=== PATIENT | male | born 1945 | race Caucasian/White ===

== ENCOUNTER 2017-01-23 08:30 | Inpatient (IN) | payer OTHER ==
[2017-01-23] VITALS (15 sets, daily range): BP systolic 93–135
[~2017-01-23] VITALS: Ht 172.7 cm; Wt 126.6 kg
[2017-01-23 09:08] LABS: BILIRUBIN,URINE NEGATIVE (NEGATIVE); BLOOD, URINE NEGATIVE (NEGATIVE); CLARITY/URINE CLEAR (CLEAR); COLOR,URINE YELLOW (YELLOW); GLUCOSE,URINE NEGATIVE (NEGATIVE); KETONES,URINE NEGATIVE (NEGATIVE); LEUKOCYTE ESTERASE ,URINE 1+ (NEGATIVE); NITRITE, URINE NEGATIVE (NEGATIVE); PH,URINE 5.5 (5.0-8.0); PROTEIN URINE TRACE (NEGATIVE)
[2017-01-23 09:16] LABS: BASOPHILS # (AUTO) 0.5 K/uL (0.0-0.2); EOSINOPHILS # (AUTO) 0.2 K/uL (0.0-0.4); EOSINOPHILS % (AUTO) 1.5 % (0.0-4.0); HEMATOCRIT 26.3 % (36-54); HEMOGLOBIN 8.1 g/dL (14.0-18.0); LYMPHOCYTES % (AUTO) 6.3 % (20.5-51.5); MEAN CORPUSCULAR HEMOGLOBIN 28 pg (27-31); MEAN CORPUSCULAR HGB CONC 31 % (32-36); MEAN CORPUSCULAR VOLUME 91 fL (79.0-98.0); MONOCYTES # (AUTO) 0.4 K/uL (0.0-1.0); MONOCYTES % (AUTO) 2.9 % (1.7-9.3); NEUTROPHILS # (AUTO) 13.1 K/uL (1.8-7.7); NEUTROPHILS % (AUTO) 86.3 % (40.0-70.0); PLATELET COUNT (AUTO) 323 K/uL (130-430); RED BLOOD CELL COUNT(AUTO) 2.89 MIL/uL (4.2-6.2); RED CELL DISTRIBUTION WIDTH 24.8 % (9.0-15.0); WHITE BLOOD COUNT (AUTO) 15.2 K/uL (4.8-10.8)
[2017-01-23 09:17] LABS: BACTERIA,URINE FEW /HPF (None Seen); RBC,URINE 0-3 /HPF (0-3)
[2017-01-23 09:18] LABS: FINE GRANULAR CASTS,URINE 0-10 /LPF (None Seen); MUCUS,URINE 1+ /LPF (None Seen); YEAST,URINE Moderate /HPF (None Seen)
[2017-01-23 09:19] LABS: ANION GAP 7 (5-15); CALCIUM 8.8 mg/dL (8.4-11.0); CHLORIDE 97 mmol/L (98-107); CREATININE 1.45 mg/dL (0.55-1.30); GLUCOSE 137 mg/dL (70-99); POTASSIUM 4.2 mmol/L (3.5-5.1); SODIUM SERUM 134 mmol/L (136-145); UREA NITROGEN, BLOOD 37 mg/dL (8-21)
[2017-01-23 09:22] LABS: INR 1.2 (0.80-1.20); PROTHROMBIN TIME 13.3 SECS (9.5-12.5)
[2017-01-23 09:24] LABS: ALANINE AMINOTRANSFERASE 101 U/L (12-78); ALBUMIN 3.8 g/dL (3.4-4.8); ASPARTATE AMINOTRANSFERASE 31 U/L (10-37); LIPASE 305 U/L (73-393); TOTAL BILIRUBIN 1.7 mg/dL (0.0-1.0); TOTAL PROTEIN, SERUM 7.6 g/dL (6.4-8.3)
[2017-01-23] MEDS: NACL 0.9% 1,000 ML IV ONE ×2 (09:25→09:57)
[2017-01-23 09:40] LABS: BLOOD GAS PH 7.293 (7.350-7.450)
[2017-01-23 09:41] LABS: ABG TOTAL HEMOGLOBIN 8.5 G/dL (12.0-18.0); BLOOD GAS BASE EXCESS 3.4 mmol/L (-3.0-3.0); BLOOD GAS HHB 9.7 % (0.0-6.0); BLOOD O2Hb% 86.4 % (94.0-97.0)
[2017-01-23] MEDS ORDERED: DOCU-144 PO (09:45)
[2017-01-23] MEDS ORDERED: MAGN400O4 PO (09:45)
[2017-01-23] MEDS ORDERED: SORBITOL MC (09:45)
[2017-01-23] MEDS ORDERED: ONDA4TAB5 PO (09:45)
[2017-01-23] MEDS ORDERED: TAMS-11 PO (09:45)
[2017-01-23] MEDS ORDERED: CITA20TA11 PO (09:45)
[2017-01-23] MEDS ORDERED: APIX5TAB PO (09:45)
[2017-01-23] MEDS ORDERED: OXYC5TAB84 PO (09:45)
[2017-01-23] MEDS ORDERED: TUBE1VIA ID (09:45)
[2017-01-23] MEDS ORDERED: SPIR25TA4 PO (09:45)
[2017-01-23] MEDS ORDERED: ATOR20TA64 PO (09:45)
[2017-01-23] MEDS ORDERED: FURO-149 PO (09:45)
[2017-01-23] MEDS ORDERED: ALBU2.5V7 INH (09:45)
[2017-01-23] MEDS ORDERED: FINA5TAB11 PO (09:45)
[2017-01-23] MEDS ORDERED: ASA81 PO (09:45)
[2017-01-23] MEDS ORDERED: ACET325T53 PO (09:45)
[2017-01-23] MEDS ORDERED: BISA5TAB10 PO (09:45)
[2017-01-23] MEDS ORDERED: POTA-118 PO (09:45)
[2017-01-23] MEDS ORDERED: cefTRIAXone 1 GM IVPB PREMIX 50 ML IV ONE (10:00)
[2017-01-23] MEDS ORDERED: ALBUTEROL SULFATE 0.083% 2.5 MG/3 ML VIAL.NEB INH PRN (11:45)
[2017-01-23] MEDS ORDERED: IPRATROPIUM BROM 0.5 MG/2.5 ML VIAL.NEB (ATROVENT) INH PRN (11:45)
[2017-01-23] MEDS ORDERED: IPRATROPIUM BROM 0.5 MG/2.5 ML VIAL.NEB (ATROVENT) INH ONE (12:00)
[2017-01-23] MEDS ORDERED: FUROSEMIDE 40 MG/4 ML VIAL IVP ONE (12:00)
[2017-01-23] MEDS ORDERED: ALBUTEROL SULFATE 0.083% 2.5 MG/3 ML VIAL.NEB INH ONE (12:00)
[2017-01-23 12:27] LABS: IRON (SERUM) 74 mcg/dL (59-158)
[2017-01-23 12:28] LABS: TOTAL IRON BIND. CAPACITY 282 ug/dL (250-450)
[2017-01-23] MEDS: PIPERACILLIN/TAZO 3.375/DEX-IS 50 ML IV SCH ×3 (12:30→23:53)
[2017-01-23 14:14] LABS: ABG TOTAL HEMOGLOBIN 8.1 G/dL (12.0-18.0); BLOOD GAS BASE EXCESS 4.2 mmol/L (-3.0-3.0); BLOOD GAS COHb% 2.6 % (0.5-1.5); BLOOD GAS HHB 9.4 % (0.0-6.0); BLOOD O2Hb% 87.3 % (94.0-97.0)
[2017-01-23] MEDS ORDERED: *HEPARIN PER PHARMACY XX ONE (14:45)
[2017-01-23] MEDS: IPRATROPIUM BROM 0.5 MG/2.5 ML VIAL.NEB (ATROVENT) INH SCH ×3 (15:00→23:56)
[2017-01-23] MEDS ORDERED: methylPREDNISolone SOD SUCC 40 MG/ML VIAL IVP ONE (15:00)
[2017-01-23] MEDS: ALBUTEROL SULFATE 0.083% 2.5 MG/3 ML VIAL.NEB INH SCH ×3 (15:00→23:56)
[2017-01-23] MEDS ORDERED: HEPARIN SODIUM,PORCINE 3000 UNITS/0.6 ML BOLUS IVP PRN (15:15)
[2017-01-23] MEDS ORDERED: HEPARIN SODIUM,PORCINE 5000 UNITS/ML VIAL IV ONE (15:15)
[2017-01-23] MEDS ORDERED: HEPARIN 25,000 UNITS in 250 ML PREMIX IV PRN (15:15)
[2017-01-23] MEDS ORDERED: HEPARIN SODIUM,PORCINE 2000 UNITS/0.4 ML BOLUS IVP PRN (15:15)
[2017-01-23] MEDS ORDERED: ONDANSETRON HCL 4 MG/2 ML VIAL IVP PRN (17:00)
[2017-01-23] MEDS: LACTOBACILLUS RHAMNOSUS GG 1 CAP CAPSULE PO SCH (20:38)
[2017-01-23] MEDS: methylPREDNISolone SOD SUCC 40 MG/ML VIAL IVP SCH (22:08)
[2017-01-24] VITALS (20 sets, daily range): BP systolic 101–159
[2017-01-24] MEDS: PIPERACILLIN/TAZO 3.375/DEX-IS 50 ML IV SCH ×3 (05:56→20:09)
[2017-01-24] MEDS: methylPREDNISolone SOD SUCC 40 MG/ML VIAL IVP SCH ×3 (05:57→22:45)
[2017-01-24 06:26] LABS: BASOPHILS # (AUTO) 0.2 K/uL (0.0-0.2); BASOPHILS % (AUTO) 1.3 % (0.0-2.0); EOSINOPHILS % (AUTO) 0.2 % (0.0-4.0); HEMATOCRIT 22.2 % (36-54); HEMOGLOBIN 7.1 g/dL (14.0-18.0); LYMPHOCYTES # (AUTO) 0.3 K/uL (1.0-5.5); LYMPHOCYTES % (AUTO) 2.2 % (20.5-51.5); MEAN CORPUSCULAR HEMOGLOBIN 30 pg (27-31); MEAN CORPUSCULAR HGB CONC 32 % (32-36); MEAN CORPUSCULAR VOLUME 93 fL (79.0-98.0); MONOCYTES # (AUTO) 0.2 K/uL (0.0-1.0); MONOCYTES % (AUTO) 1.8 % (1.7-9.3); NEUTROPHILS # (AUTO) 12.2 K/uL (1.8-7.7); NEUTROPHILS % (AUTO) 94.5 % (40.0-70.0); PLATELET COUNT (AUTO) 269 K/uL (130-430); RED CELL DISTRIBUTION WIDTH 24.7 % (9.0-15.0); WHITE BLOOD COUNT (AUTO) 12.9 K/uL (4.8-10.8)
[2017-01-24 06:46] LABS: ALANINE AMINOTRANSFERASE 83 U/L (12-78); ANION GAP 3 (5-15); ASPARTATE AMINOTRANSFERASE 28 U/L (10-37); CALCIUM 8.4 mg/dL (8.4-11.0); CHLORIDE 98 mmol/L (98-107); CREATININE 1.52 mg/dL (0.55-1.30); GLUCOSE 125 mg/dL (70-99); SODIUM SERUM 135 mmol/L (136-145); THYROID STIMULATING HORMONE 1.16 uIu/mL (0.34-4.82); TOTAL BILIRUBIN 1.1 mg/dL (0.0-1.0); TOTAL PROTEIN, SERUM 6.4 g/dL (6.4-8.3); UREA NITROGEN, BLOOD 35 mg/dL (8-21)
[2017-01-24 07:32] LABS: ABG TOTAL HEMOGLOBIN 8.4 G/dL (12.0-18.0); BLOOD GAS BASE EXCESS 5.9 mmol/L (-3.0-3.0); BLOOD GAS COHb% 2.1 % (0.5-1.5); BLOOD GAS HHB 12.3 % (0.0-6.0); BLOOD O2Hb% 85.4 % (94.0-97.0)
[2017-01-24] MEDS: IPRATROPIUM BROM 0.5 MG/2.5 ML VIAL.NEB (ATROVENT) INH SCH ×5 (09:14→23:41)
[2017-01-24] MEDS: ALBUTEROL SULFATE 0.083% 2.5 MG/3 ML VIAL.NEB INH SCH ×5 (09:14→23:41)
[2017-01-24] MEDS: LACTOBACILLUS RHAMNOSUS GG 1 CAP CAPSULE PO SCH ×2 (09:26→20:11)
[2017-01-24] MEDS: FUROSEMIDE 40 MG/4 ML VIAL IVP SCH (09:28)
[2017-01-24 16:56] LABS: BF APPEARANCE UNSPUN SLIGHTLY CLOUDY (CLEAR); BODY FLUID COLOR RED (LT YELLOW); BODY FLUID TOTAL VOLUME 800 mL; LYMPHOCYTES, BODY FLUID 15 %; NEUTROPHIL, BODY FLUID 85 %; RBC, BODY FLUID 148750 /uL; SOURCE/TYPE ,BODY FLUID PLEURAL
[2017-01-24] MEDS ORDERED: ACETAMINOPHEN 650 MG/20.3 ML UDC PO PRN (23:30)
[2017-01-25] VITALS (7 sets, daily range): BP systolic 105–120
[2017-01-25 00:05] LABS: BODY FLUID TOTAL PROTEIN 3.3 g/dL
[2017-01-25] MEDS: PIPERACILLIN/TAZO 3.375/DEX-IS 50 ML IV SCH ×5 (00:19→23:10)
[2017-01-25] MEDS: IPRATROPIUM BROM 0.5 MG/2.5 ML VIAL.NEB (ATROVENT) INH SCH ×5 (03:00→18:55)
[2017-01-25] MEDS: ALBUTEROL SULFATE 0.083% 2.5 MG/3 ML VIAL.NEB INH SCH ×5 (03:00→18:56)
[2017-01-25] MEDS: methylPREDNISolone SOD SUCC 40 MG/ML VIAL IVP SCH (06:09)
[2017-01-25] MEDS ORDERED: DIATR MEGLU/DIATRIZ SOD 30 ML SOLUTION PO ONE (08:49)
[2017-01-25 09:55] LABS: RETICULOCYTE COUNT 5.9 % (0.5-1.5)
[2017-01-25] MEDS: FUROSEMIDE 40 MG/4 ML VIAL IVP SCH (10:04)
[2017-01-25] MEDS: LACTOBACILLUS RHAMNOSUS GG 1 CAP CAPSULE PO SCH ×2 (10:05→21:24)
[2017-01-25 10:57] LABS: BASOPHILS # (AUTO) 0.1 K/uL (0.0-0.2); BASOPHILS % (AUTO) 0.6 % (0.0-2.0); EOSINOPHILS % (AUTO) 0.2 % (0.0-4.0); HEMATOCRIT 26.4 % (36-54); HEMOGLOBIN 8.3 g/dL (14.0-18.0); LYMPHOCYTES # (AUTO) 0.4 K/uL (1.0-5.5); LYMPHOCYTES % (AUTO) 3.3 % (20.5-51.5); MEAN CORPUSCULAR HEMOGLOBIN 29 pg (27-31); MEAN CORPUSCULAR HGB CONC 32 % (32-36); MEAN CORPUSCULAR VOLUME 92 fL (79.0-98.0); MONOCYTES # (AUTO) 0.3 K/uL (0.0-1.0); MONOCYTES % (AUTO) 2.1 % (1.7-9.3); NEUTROPHILS # (AUTO) 11.4 K/uL (1.8-7.7); PLATELET COUNT (AUTO) 263 K/uL (130-430); RED BLOOD CELL COUNT(AUTO) 2.86 MIL/uL (4.2-6.2); RED CELL DISTRIBUTION WIDTH 22.1 % (9.0-15.0); WHITE BLOOD COUNT (AUTO) 12.3 K/uL (4.8-10.8)
[2017-01-25 12:20] LABS: NEUTROPHILS % (AUTO) 93.8 % (40.0-70.0)
[2017-01-25] MEDS: PREDNISONE 20 MG TABLET PO SCH (21:24)
[2017-01-26] VITALS (7 sets, daily range): BP systolic 107–125
[2017-01-26] MEDS: IPRATROPIUM BROM 0.5 MG/2.5 ML VIAL.NEB (ATROVENT) INH SCH ×7 (03:00→23:00)
[2017-01-26] MEDS: ALBUTEROL SULFATE 0.083% 2.5 MG/3 ML VIAL.NEB INH SCH ×7 (03:00→23:00)
[2017-01-26] MEDS: PIPERACILLIN/TAZO 3.375/DEX-IS 50 ML IV SCH ×4 (05:58→23:30)
[2017-01-26] MEDS: PREDNISONE 20 MG TABLET PO SCH ×3 (09:18→17:31)
[2017-01-26] MEDS: LACTOBACILLUS RHAMNOSUS GG 1 CAP CAPSULE PO SCH ×2 (09:18→21:52)
[2017-01-26] MEDS: FUROSEMIDE 40 MG/4 ML VIAL IVP SCH (09:18)
[2017-01-26] MEDS ORDERED: BISACODYL 5 MG TABLET.DR (DULCOLAX) PO ONE (12:15)
[2017-01-26] MEDS ORDERED: MINERAL OIL 30 ML UDC PO ONE (12:15)
[2017-01-26] MEDS ORDERED: CITALOPRAM HYDROBROMIDE 20 MG TABLET PO ONE (13:00)
[2017-01-26 13:53] LABS: BASOPHILS # (AUTO) 0.1 K/uL (0.0-0.2); BASOPHILS % (AUTO) 0.9 % (0.0-2.0); EOSINOPHILS % (AUTO) 0.5 % (0.0-4.0); HEMATOCRIT 28.2 % (36-54); HEMOGLOBIN 9.1 g/dL (14.0-18.0); LYMPHOCYTES # (AUTO) 0.2 K/uL (1.0-5.5); LYMPHOCYTES % (AUTO) 3.7 % (20.5-51.5); MEAN CORPUSCULAR HEMOGLOBIN 30 pg (27-31); MEAN CORPUSCULAR HGB CONC 32 % (32-36); MONOCYTES # (AUTO) 0.5 K/uL (0.0-1.0); MONOCYTES % (AUTO) 8.1 % (1.7-9.3); NEUTROPHILS # (AUTO) 5.9 K/uL (1.8-7.7); PLATELET COUNT (AUTO) 215 K/uL (130-430); RED BLOOD CELL COUNT(AUTO) 2.99 MIL/uL (4.2-6.2); WHITE BLOOD COUNT (AUTO) 6.8 K/uL (4.8-10.8)
[2017-01-26 13:56] LABS: MEAN CORPUSCULAR VOLUME 94 fL (79.0-98.0)
[2017-01-26 14:02] LABS: ALANINE AMINOTRANSFERASE 74 U/L (12-78); ALBUMIN 3.1 g/dL (3.4-4.8); ANION GAP 3 (5-15); ASPARTATE AMINOTRANSFERASE 28 U/L (10-37); CALCIUM 8.4 mg/dL (8.4-11.0); CHLORIDE 97 mmol/L (98-107); CREATININE 1.24 mg/dL (0.55-1.30); GLUCOSE 159 mg/dL (70-99); SODIUM SERUM 134 mmol/L (136-145); TOTAL BILIRUBIN 1.1 mg/dL (0.0-1.0); TOTAL PROTEIN, SERUM 6.5 g/dL (6.4-8.3); UREA NITROGEN, BLOOD 40 mg/dL (8-21)
[2017-01-26 14:17] LABS: RED CELL DISTRIBUTION WIDTH 25.1 % (9.0-15.0)
[2017-01-26 14:19] LABS: NEUTROPHILS % (AUTO) 86.8 % (40.0-70.0)
[2017-01-26] MEDS: ZOLPIDEM TARTRATE 5 MG TABLET PO PRN (21:52)
[2017-01-27 00:35] VITALS: BP_SYST 125
[2017-01-27] MEDS: IPRATROPIUM BROM 0.5 MG/2.5 ML VIAL.NEB (ATROVENT) INH SCH ×6 (03:00→23:00)
[2017-01-27] MEDS: ALBUTEROL SULFATE 0.083% 2.5 MG/3 ML VIAL.NEB INH SCH ×6 (03:00→23:00)
[2017-01-27 04:00] VITALS: BP_SYST 129
[2017-01-27] MEDS: PIPERACILLIN/TAZO 3.375/DEX-IS 50 ML IV SCH ×4 (05:26→23:08)
[2017-01-27 08:17] VITALS: BP_SYST 115
[2017-01-27] MEDS: FUROSEMIDE 40 MG/4 ML VIAL IVP SCH (08:57)
[2017-01-27] MEDS: CITALOPRAM HYDROBROMIDE 20 MG TABLET PO SCH ×2 (08:57→09:01)
[2017-01-27] MEDS: LACTOBACILLUS RHAMNOSUS GG 1 CAP CAPSULE PO SCH ×2 (08:57→20:31)
[2017-01-27 09:58] LABS: BASOPHILS % (AUTO) 0.4 % (0.0-2.0); EOSINOPHILS # (AUTO) 0.1 K/uL (0.0-0.4); EOSINOPHILS % (AUTO) 2.1 % (0.0-4.0); HEMATOCRIT 29.5 % (36-54); HEMOGLOBIN 9.3 g/dL (14.0-18.0); LYMPHOCYTES # (AUTO) 0.3 K/uL (1.0-5.5); LYMPHOCYTES % (AUTO) 6.4 % (20.5-51.5); MEAN CORPUSCULAR HEMOGLOBIN 30 pg (27-31); MEAN CORPUSCULAR HGB CONC 32 % (32-36); MEAN CORPUSCULAR VOLUME 95 fL (79.0-98.0); MONOCYTES # (AUTO) 0.2 K/uL (0.0-1.0); MONOCYTES % (AUTO) 3.9 % (1.7-9.3); NEUTROPHILS # (AUTO) 3.9 K/uL (1.8-7.7); NEUTROPHILS % (AUTO) 87.2 % (40.0-70.0); PLATELET COUNT (AUTO) 182 K/uL (130-430); RED BLOOD CELL COUNT(AUTO) 3.09 MIL/uL (4.2-6.2); RED CELL DISTRIBUTION WIDTH 24.8 % (9.0-15.0); WHITE BLOOD COUNT (AUTO) 4.5 K/uL (4.8-10.8)
[2017-01-27 10:20] LABS: ANION GAP 5 (5-15); CALCIUM 8.7 mg/dL (8.4-11.0); CHLORIDE 99 mmol/L (98-107); CREATININE 1.14 mg/dL (0.55-1.30); GLUCOSE 131 mg/dL (70-99); POTASSIUM 3.7 mmol/L (3.5-5.1); SODIUM SERUM 138 mmol/L (136-145); UREA NITROGEN, BLOOD 36 mg/dL (8-21)
[2017-01-27 11:27] LABS: WBC, BODY FLUID 1550 /uL
[2017-01-27 11:50] VITALS: BP_SYST 110
[2017-01-27 16:18] VITALS: BP_SYST 118
[2017-01-27] MEDS: PREDNISONE 10 MG TABLET PO SCH (20:32)
[2017-01-27 20:41] VITALS: BP_SYST 125
[2017-01-28 00:40] VITALS: BP_SYST 128
[2017-01-28] MEDS: ZOLPIDEM TARTRATE 5 MG TABLET PO PRN ×2 (02:12→21:28)
[2017-01-28] MEDS: ALBUTEROL SULFATE 0.083% 2.5 MG/3 ML VIAL.NEB INH SCH ×5 (03:00→23:00)
[2017-01-28] MEDS: IPRATROPIUM BROM 0.5 MG/2.5 ML VIAL.NEB (ATROVENT) INH SCH ×6 (03:00→23:00)
[2017-01-28 03:06] LABS: CEA 1.5 ng/mL (0.0-4.7)
[2017-01-28 04:00] VITALS: BP_SYST 128
[2017-01-28] MEDS: PIPERACILLIN/TAZO 3.375/DEX-IS 50 ML IV SCH ×3 (05:08→17:50)
[2017-01-28 07:41] LABS: EOSINOPHILS # (AUTO) 0.3 K/uL (0.0-0.4); HEMOGLOBIN 9.1 g/dL (14.0-18.0); LYMPHOCYTES # (AUTO) 0.3 K/uL (1.0-5.5); MONOCYTES # (AUTO) 0.5 K/uL (0.0-1.0); RED BLOOD CELL COUNT(AUTO) 3.01 MIL/uL (4.2-6.2)
[2017-01-28 07:47] VITALS: BP_SYST 131
[2017-01-28 07:50] LABS: BASOPHILS % (AUTO) 0.6 % (0.0-2.0); HEMATOCRIT 28.5 % (36-54); LYMPHOCYTES % (AUTO) 5.7 % (20.5-51.5); MEAN CORPUSCULAR HEMOGLOBIN 30 pg (27-31); MEAN CORPUSCULAR HGB CONC 32 % (32-36); MEAN CORPUSCULAR VOLUME 95 fL (79.0-98.0); MONOCYTES % (AUTO) 10.1 % (1.7-9.3); NEUTROPHILS # (AUTO) 4.2 K/uL (1.8-7.7); NEUTROPHILS % (AUTO) 77.6 % (40.0-70.0); PLATELET COUNT (AUTO) 207 K/uL (130-430); RED CELL DISTRIBUTION WIDTH 24.1 % (9.0-15.0); WHITE BLOOD COUNT (AUTO) 5.3 K/uL (4.8-10.8)
[2017-01-28 08:00] LABS: ANION GAP 3 (5-15); CALCIUM 8.3 mg/dL (8.4-11.0); CHLORIDE 100 mmol/L (98-107); CREATININE 0.99 mg/dL (0.55-1.30); GLUCOSE 80 mg/dL (70-99); POTASSIUM 4.3 mmol/L (3.5-5.1); SODIUM SERUM 138 mmol/L (136-145); UREA NITROGEN, BLOOD 31 mg/dL (8-21)
[2017-01-28 08:01] LABS: ALANINE AMINOTRANSFERASE 67 U/L (12-78); ALBUMIN 2.9 g/dL (3.4-4.8); ASPARTATE AMINOTRANSFERASE 30 U/L (10-37); TOTAL BILIRUBIN 0.9 mg/dL (0.0-1.0)
[2017-01-28] MEDS: CITALOPRAM HYDROBROMIDE 20 MG TABLET PO SCH (08:49)
[2017-01-28] MEDS: FUROSEMIDE 40 MG/4 ML VIAL IVP SCH (08:50)
[2017-01-28] MEDS: LACTOBACILLUS RHAMNOSUS GG 1 CAP CAPSULE PO SCH (08:50)
[2017-01-28] MEDS: PREDNISONE 10 MG TABLET PO SCH ×2 (08:50→21:28)
[2017-01-28 12:34] VITALS: BP_SYST 115
[2017-01-28 16:34] VITALS: BP_SYST 110
[2017-01-28 19:30] VITALS: BP_SYST 116
[2017-01-29] MEDS: PIPERACILLIN/TAZO 3.375/DEX-IS 50 ML IV SCH ×5 (00:52→23:55)
[2017-01-29 01:22] VITALS: BP_SYST 123
[2017-01-29] MEDS: ALBUTEROL SULFATE 0.083% 2.5 MG/3 ML VIAL.NEB INH SCH ×5 (07:11→23:00)
[2017-01-29] MEDS: IPRATROPIUM BROM 0.5 MG/2.5 ML VIAL.NEB (ATROVENT) INH SCH ×5 (07:12→23:00)
[2017-01-29 07:28] LABS: ANION GAP 1 (5-15); CALCIUM 8.3 mg/dL (8.4-11.0); CHLORIDE 102 mmol/L (98-107); CREATININE 0.97 mg/dL (0.55-1.30); GLUCOSE 91 mg/dL (70-99); POTASSIUM 4.5 mmol/L (3.5-5.1); SODIUM SERUM 140 mmol/L (136-145); UREA NITROGEN, BLOOD 27 mg/dL (8-21)
[2017-01-29 07:30] LABS: BASOPHILS % (AUTO) 0.7 % (0.0-2.0); EOSINOPHILS # (AUTO) 0.2 K/uL (0.0-0.4); EOSINOPHILS % (AUTO) 3.6 % (0.0-4.0); HEMATOCRIT 29.3 % (36-54); HEMOGLOBIN 9.4 g/dL (14.0-18.0); LYMPHOCYTES # (AUTO) 0.3 K/uL (1.0-5.5); LYMPHOCYTES % (AUTO) 5.7 % (20.5-51.5); MEAN CORPUSCULAR HEMOGLOBIN 31 pg (27-31); MEAN CORPUSCULAR HGB CONC 32 % (32-36); MEAN CORPUSCULAR VOLUME 96 fL (79.0-98.0); MONOCYTES # (AUTO) 0.4 K/uL (0.0-1.0); MONOCYTES % (AUTO) 7.2 % (1.7-9.3); NEUTROPHILS # (AUTO) 4.3 K/uL (1.8-7.7); NEUTROPHILS % (AUTO) 82.8 % (40.0-70.0); PLATELET COUNT (AUTO) 181 K/uL (130-430); RED BLOOD CELL COUNT(AUTO) 3.07 MIL/uL (4.2-6.2); WHITE BLOOD COUNT (AUTO) 5.2 K/uL (4.8-10.8)
[2017-01-29 08:29] VITALS: BP_SYST 128
[2017-01-29] MEDS: CITALOPRAM HYDROBROMIDE 20 MG TABLET PO SCH (08:53)
[2017-01-29] MEDS: PREDNISONE 10 MG TABLET PO SCH ×2 (08:53→20:53)
[2017-01-29] MEDS: FUROSEMIDE 40 MG/4 ML VIAL IVP SCH (08:54)
[2017-01-29 11:33] VITALS: BP_SYST 147
[2017-01-29 15:26] VITALS: BP_SYST 143
[2017-01-29 15:50] VITALS: BP_SYST 143
[2017-01-29 20:00] VITALS: BP_SYST 130
[2017-01-29] MEDS: ZOLPIDEM TARTRATE 5 MG TABLET PO PRN (20:53)
[2017-01-30 00:07] VITALS: BP_SYST 130
[2017-01-30] MEDS: ALBUTEROL SULFATE 0.083% 2.5 MG/3 ML VIAL.NEB INH SCH (03:00)
[2017-01-30] MEDS: IPRATROPIUM BROM 0.5 MG/2.5 ML VIAL.NEB (ATROVENT) INH SCH (03:00)
[2017-01-30 03:43] VITALS: BP_SYST 129
[2017-01-30 06:59] LABS: ANION GAP 1 (5-15); CALCIUM 8.2 mg/dL (8.4-11.0); CHLORIDE 104 mmol/L (98-107); CREATININE 0.88 mg/dL (0.55-1.30); GLUCOSE 89 mg/dL (70-99); POTASSIUM 4.6 mmol/L (3.5-5.1); SODIUM SERUM 141 mmol/L (136-145); UREA NITROGEN, BLOOD 30 mg/dL (8-21)
[2017-01-30 08:00] VITALS: BP_SYST 137
[2017-01-30] MEDS: PREDNISONE 10 MG TABLET PO SCH (09:00)
[2017-01-30] MEDS: CITALOPRAM HYDROBROMIDE 20 MG TABLET PO SCH (09:00)
[2017-01-30 09:46] VITALS: BP_SYST 137
[2017-01-30] MEDS: FUROSEMIDE 40 MG/4 ML VIAL IVP SCH (10:10)
[2017-01-30 12:00] VITALS: BP_SYST 128
== END 2017-01-30 11:40 | disposition short-term general hospital (02) | DRG 291 ==
LOC: SED 08:30 → SIC 11:01 → STU 01-24 18:47 → SMU 01-28 17:01
PROVIDERS: ADMIT Internal Medicine Hospice and Palliative Medicine; ATTEND Internal Medicine Hospice and Palliative Medicine
PROC: 5A09457 Assistance with Respiratory Ventilation, 24-96 Consecutive Hours, Continuous Positive Airway Pressure (ICD-10-PCS; principal; 2017-01-23)
PROC: 30233N1 Transfusion of Nonautologous Red Blood Cells into Peripheral Vein, Percutaneous Approach (ICD-10-PCS; 2017-01-24)
PROC: 0W993ZZ Drainage of Right Pleural Cavity, Percutaneous Approach (ICD-10-PCS; 2017-01-24)
DX: I11.0 Hypertensive heart disease with heart failure (principal); J96.20 Acute and chronic respiratory failure, unspecified whether with hypoxia or hypercapnia; J18.9 Pneumonia, unspecified organism; J90 Pleural effusion, not elsewhere classified; I31.3 Pericardial effusion (noninflammatory); J44.0 Chronic obstructive pulmonary disease with (acute) lower respiratory infection; Z68.41 Body mass index [BMI] 40.0-44.9, adult; I50.33 Acute on chronic diastolic (congestive) heart failure; N19 Unspecified kidney failure; N40.0 Benign prostatic hyperplasia without lower urinary tract symptoms; E66.9 Obesity, unspecified; M54.5 Low back pain; G89.29 Other chronic pain; Z96.651 Presence of right artificial knee joint; G47.33 Obstructive sleep apnea (adult) (pediatric); D64.9 Anemia, unspecified; I25.10 Atherosclerotic heart disease of native coronary artery without angina pectoris; E03.9 Hypothyroidism, unspecified; Z99.81 Dependence on supplemental oxygen; Z79.82 Long term (current) use of aspirin; Z79.899 Other long term (current) drug therapy; Z85.028 Personal history of other malignant neoplasm of stomach; Z86.718 Personal history of other venous thrombosis and embolism; Z87.891 Personal history of nicotine dependence
CPT/HCPCS: 32555; 36415; 36600; 71010; 71250-TC; 80048; 80053; 81000-TC; 82272; 82378; 82607; 82803-TC; 82947-TC; 83540-TC; 83550-TC; 83605; 83615-TC; 83690-TC; 83880; 84157-TC; 84443-TC; 84484; 85025; 85044-TC; 85610-TC; 85651-TC; 85730-TC; 86301; 86886; 86900; 86901; 86920; 87040-TC; 87070-TC; 87081; 87086; 87116; 88108; 89051-TC; 89060-TC; 93005; 93306; 93970; 94640; 94660; 94760; 96365; 96375; 97110-GP; 97116-GP; 97530-GP; 99291; C1729; C1751; J0696; J1030; J1644; J1940; J2405; J2543; J7040; J7050; J7512; P9021; Q9964